=== PATIENT | female | born 1975 | race Caucasian/White ===

== ENCOUNTER 2022-08-07 04:18 | Observation (INO) ==
[2022-08-07] MEDS ORDERED: IOPAMIDOL 100 ML BOTTLE IV ONE (04:19)
[2022-08-07] MEDS ORDERED: 0.9 % SODIUM CHLORIDE 1,000 ML IV ONE (04:23)
[2022-08-07] MEDS ORDERED: fentaNYL 100 MCG/2 ML VIAL IV ONE ×2 (04:30→06:26)
[2022-08-07] MEDS ORDERED: ONDANSETRON 4 MG/2 ML VIAL IV ONE (04:30)
[2022-08-07 04:34] LABS: POC Calcium, Ionized 1.23 (1.16-1.32); POC Potassium 3.6 (3.3-5.1)
--- NOTE | 2022-08-07 04:34 | Emergency Department Note ---
Abdominal Pain HPI General Chief Complaint: Abdominal Pain Stated Complaint: right side pain Time Seen by Provider: 08/07/22 04:21 Source: patient Mode of arrival: ambulatory Limitations: no limitations History of Present Illness HPI Narrative: Narrative: Patient presents ED with complaints of worsening abdominal pain x4 days. Pain is rated 7/10 and located in the right upper quadrant. Patient states she was seen at [facility] 2 days ago and had a ultrasound which showed gallstones. She states she was felt to be referred to general surgery but does not have an appointment yet. She reports associated nausea. She denies fever, chills, vomiting, dysuria, hematuria, urinary frequency, cardiac chest pain, heart palpitation, shortness of breath. She states the pain is not controlled at home. She states she would like her gallbladder out. She does report a history of PE with the last 1 being 4 years ago and is on chronic anticoagulation with Xarelto. Patient states that she last ate at approximate 9:00 last night. Patient denies any other alleviating or aggravating factors. She reports that she has a tubal ligation. Related Data Home Medications Medication Instructions Recorded Confirmed trazodone 100 mg tablet 100 mg PO HS 02/08/18 08/05/22 rivaroxaban 10 mg tablet (Xarelto) 10 mg PO QDAY 03/01/22 08/05/22 ibuprofen 800 mg tablet 800 mg PO TID 04/16/22 08/05/22 methocarbamol 750 mg tablet 750 mg PO PRN 04/16/22 08/05/22 topiramate 100 mg tablet 100 mg PO HS 04/16/22 08/05/22 venlafaxine 75 mg tablet 75 mg PO ONCE 08/05/22 08/05/22 Previous Rx's Medication Instructions Recorded triamcinolone acetonide 0.1 % 1 applic topical BID rash #15 grams 08/05/22 topical ointment Allergies Allergy/AdvReac Type Severity Reaction Status Date / Time codeine AdvReac Other Verified 08/05/22 15:16 Sulfa (Sulfonamide AdvReac Vomiting Verified 08/05/22 15:16 Antibiotics) Review of Systems ROS ROS Narrative: Narrative: All systems ED: reviewed and negative except as stated. [facility] Narrative Patient History Narrative: Narrative: Medical/Surgical/Family History All Active Problems (Updated 08/07/22 @ 06:46 by Derek Marrero DO) Cholelithiasis (Acute) Abdominal pain (Acute) Degeneration of intervertebral disc of lumbar region (Acute) Radiculopathy, lumbosacral region (Acute) Current use of anticoagulant therapy (Chronic) Chronic pain (Chronic) Depression (Chronic) Easy bruising (Chronic) Vasculitis (Chronic) Recurrent UTI (Chronic) Daily headache (Chronic) Pulmonary embolus (Chronic) Edema, lower extremity (Chronic) Other low back pain (Chronic) Migraine (Chronic) Anxiety disorder (Chronic) Bipolar disorder (Chronic) Recurrent major depression (Chronic) Obesity (Chronic) Lumbar radiculopathy (Chronic) Exposure to COVID-19 virus (Acute) Viral syndrome (Acute) Dental abscess (Acute) Dental caries (Acute) Musculoskeletal arm pain (Acute) Neck pain (Acute) Chest pain (Acute) Shortness of breath (Acute) Elevated d-dimer (Acute) History of pulmonary embolus (PE) (Acute) Family history of deep venous thrombosis (Acute) Medical History Anxiety disorder Bipolar disorder Chronic pain Current use of anticoagulant therapy Daily headache Dental abscess Dental caries Depression Easy bruising Edema, lower extremity Exposure to COVID-19 virus Lumbar radiculopathy Migraine Obesity Other low back pain Pulmonary embolus Recurrent major depression Recurrent UTI Vasculitis Viral syndrome Surgical History History of cervical discectomy (~2016) x2, metal placed History of tonsillectomy and adenoidectomy (01/06/83) History of tubal ligation (05/20/99) Family History Grandfather , at age 66 Heart disease Myocardial infarction Maternal Grandmother , at age 60 Cancer Disease of liver Maternal Dementia Paternal- at age 98 Uncle Cancer Schizophrenia, unspecified Paternal Son Mood disorder Mother Mood disorder Hypertension Aunt Blood coagulation disorder Paternal Other Diabetes mellitus Social History Smoking Status: Never smoker Alcohol Intake Frequency: holiday/special occasion only Substance Use: does not use Exam Narrative Narrative: Narrative: General Limitations: no limitations General appearance: Present alert Head Head: Present atraumatic Eye Eye: Present normal appearance ENT ENT: Present normal oropharynx and mucous membranes moist Chest Chest: Present normal inspection; Absent tenderness Respiratory Respiratory: Present normal lung sounds bilaterally; Absent respiratory distress Cardiovascular Cardiovascular: Present regular rate and normal rhythm Adbominal Abdominal: Present soft, tenderness and normal bowel sounds Expanded Abdominal Abdominal Tenderness: Present RUQ and LUQ Extremities Extremities: Present full ROM and normal capillary refill Neurological Neurological: Present oriented X3 and normal gait Psychiatric Psychiatric: Present normal affect and normal mood Skin Skin: Present warm (WNL) and intact Course Course Course Narrative: Patient was evaluated for right upper quadrant abdominal pain with known cholelithiasis on ultrasound 2 days ago. Labs were obtained and were unremarkable. UA was unremarkable. ECG was unremarkable. Patient also had some left upper quadrant tenderness to palpation, this could have been radiation from the right upper quadrant but a CT of the abdomen pelvis obtained was unremarkable. Patient was given IV fentanyl and fluids. Her pain did improve. She is also given some Zofran for nausea. Case was discussed with on-call surgeon, Dr. Wellington, who states he will come down evaluate the patient. Case will be signed out to Dr. Lewis to determine disposition as I am going off service pending recommendations from Dr. Wellington. Reevaluation(s) Reevaluation #1: Patient remains hemodynamic stable. No new complaints at this time. Time: 05:30 Consultations Consultation #1: Case discussed with on-call general surgeon, Dr. Wellington, who will come and evaluate the patient Time: 06:05 Vital Signs Vital signs: Vital Signs Temperature 97 F 08/07/22 04:21 Pulse Rate 57 L 08/07/22 04:21 Respiratory Rate 16 08/07/22 04:21 Blood Pressure 144/88 08/07/22 04:21 Pulse Oximetry (%) 99 08/07/22 04:21 Oxygen Delivery Method 08/07/22 04:21 Temperature 97 F 08/07/22 04:21 Pulse Rate 67 08/07/22 06:32 Respiratory Rate 16 08/07/22 04:21 Blood Pressure 118/77 08/07/22 06:32 Pulse Oximetry (%) 100 08/07/22 06:32 Oxygen Delivery Method 08/07/22 04:21 [facility] MDM Narrative Medical decision making narrative: Narrative: Differential Diagnosis Differential Diagnosis: Gallstones Medical Records Medical records reviewed: Yes I reviewed the patient's medical records. Lab Data Lab results reviewed: Yes I reviewed the patient's lab results. Result diagrams: 08/07/22 04:43 Labs: Lab Results 08/07/22 08/07/22 08/07/22 Range/Units 04:30 04:42 04:43 WBC 7.8 (4.5-11.0) K/mcL RBC 5.07 (3.59-5.38) M/mcL Hgb 14.4 (11.2-15.7) g/dL Hct 45.5 H (34.1-44.9) % POC Hct 45.0 (36-48) MCV 89.7 (80.0-100.0) fL MCH 28.4 (26.0-34.0) pg MCHC 31.6 (31.0-36.0) g/dL RDW 13.0 (11.5-14.5) % Plt Count 413 (140-440) K/mcL MPV 10.2 (8.8-12.5) fL Immature Gran % (Auto) 0.3 (0.0-0.5) % Neut % (Auto) 38.6 (38.0-78.0) % Lymph % (Auto) 46.4 (15.5-49.0) % Wilkes % (Auto) 10.0 (1.0-12.0) % Eos % (Auto) 3.2 (0.0-7.0) % Baso % (Auto) 1.5 (0.0-2.0) % Lymph # (Auto) 3.63 (1.50-4.80) K/mcL Wilkes # (Auto) 0.78 (0.10-0.90) K/mcL Eos # (Auto) 0.25 (0.00-0.70) K/mcL Baso # (Auto) 0.12 (0.00-0.30) K/mcL Immature Gran # 0.02 (0.00-0.05) K/mcl Absolute Neutrophils 3.02 (1.80-8.00) K/mcL POC PT 15.4 H (11.9-14.5) POC INR 1.3 H (0.8-1.2) POC Sodium 143 (133-145) POC Potassium 3.6 (3.3-5.1) POC Chloride 109 H (96-108) POC Total CO2 23.0 (22-30) POC BUN 15 (6-20) POC Creatinine 1.0 (0.6-1.2) POC Glucose 109 H (70-105) POC WB Ioniz Calcium 1.23 (1.16-1.32) Total Bilirubin (0.1-1.0) mg/dL Direct Bilirubin (0-0.3) mg/dL AST (<32) U/L ALT (<40) U/L Alkaline Phosphatase (39-117) U/L Total Protein (5.9-8.4) gm/dL Albumin (3.2-5.2) gm/dL Globulin (2.2-3.7) gm/dL HCG, Qual 08/07/22 Range/Units 04:43 WBC (4.5-11.0) K/mcL RBC (3.59-5.38) M/mcL Hgb (11.2-15.7) g/dL Hct (34.1-44.9) % POC Hct (36-48) MCV (80.0-100.0) fL MCH (26.0-34.0) pg MCHC (31.0-36.0) g/dL RDW (11.5-14.5) % Plt Count (140-440) K/mcL MPV (8.8-12.5) fL Immature Gran % (Auto) (0.0-0.5) % Neut % (Auto) (38.0-78.0) % Lymph % (Auto) (15.5-49.0) % Wilkes % (Auto) (1.0-12.0) % Eos % (Auto) (0.0-7.0) % Baso % (Auto) (0.0-2.0) % Lymph # (Auto) (1.50-4.80) K/mcL Wilkes # (Auto) (0.10-0.90) K/mcL Eos # (Auto) (0.00-0.70) K/mcL Baso # (Auto) (0.00-0.30) K/mcL Immature Gran # (0.00-0.05) K/mcl Absolute Neutrophils (1.80-8.00) K/mcL POC PT (11.9-14.5) POC INR (0.8-1.2) POC Sodium (133-145) POC Potassium (3.3-5.1) POC Chloride (96-108) POC Total CO2 (22-30) POC BUN (6-20) POC Creatinine (0.6-1.2) POC Glucose (70-105) POC WB Ioniz Calcium (1.16-1.32) Total Bilirubin 0.2 (0.1-1.0) mg/dL Direct Bilirubin < 0.2 (0-0.3) mg/dL AST 16 (<32) U/L ALT 16 (<40) U/L Alkaline Phosphatase 86 (39-117) U/L Total Protein 7.3 (5.9-8.4) gm/dL Albumin 4.2 (3.2-5.2) gm/dL Globulin 3.1 (2.2-3.7) gm/dL HCG, Qual Negative Core Measures AMI Core Measures Followed: Yes Discharge Plan Patient/Caregiver Discharge Instructions Pt seen by APARTMENT LEASING AGENT/PA only: No Clinical Impression: Cholelithiasis Qualifiers: Cholelithiasis location: gallbladder Cholecystitis presence: without cholecystitis Biliary obstruction: without biliary obstruction Qualified Code(s): K80.20 - Calculus of gallbladder without cholecystitis without obstruction Abdominal pain Qualifiers: Abdominal location: right upper quadrant Qualified Code(s): R10.11 - Right upper quadrant pain Patient Disposition: Still a Patient Condition: Good Follow up with: Charlee Bundy PAFidencioC [Primary Care Provider] - Prescriptions: No Action topiramate 100 mg tablet 100 mg PO HS methocarbamol 750 mg tablet 750 mg PO PRN ibuprofen 800 mg tablet 800 mg PO TID Xarelto 10 mg tablet 10 mg PO QDAY triamcinolone acetonide 0.1 % ointment 1 applic topical BID Qty: 15 0RF Rx Instructions: Apply thin layer to affected area BID PRN for up to 2 weeks. Avoid contact with eyes. venlafaxine 75 mg tablet 75 mg PO ONCE trazodone 100 MG tablet 100 mg PO HS
[2022-08-07 04:47] LABS: POC INR 1.3 (0.8-1.2); POC Pro Time 15.4 (11.9-14.5)
[2022-08-07 05:36] LABS: Basophils # (Auto) 0.12 K/mcL (0.00-0.30); Basophils % (Auto) 1.5 % (0.0-2.0); Eosinophils # (Auto) 0.25 K/mcL (0.00-0.70); Eosinophils % (Auto) 3.2 % (0.0-7.0); HCG,Serum Negative; Hematocrit 45.5 % (34.1-44.9); Hemoglobin 14.4 g/dL (11.2-15.7); Lymphocytes # (Auto) 3.63 K/mcL (1.50-4.80); Lymphocytes % (Auto) 46.4 % (15.5-49.0); Mean Cell Volume 89.7 fL (80.0-100.0); Mean Corpuscular HGB Conc 31.6 g/dL (31.0-36.0); Mean Platelet Volume 10.2 fL (8.8-12.5); Monocytes # (Auto) 0.78 K/mcL (0.10-0.90); Neutrophils % (Auto) 38.6 % (38.0-78.0); Platelet Count 413 K/mcL (140-440); RBC 5.07 M/mcL (3.59-5.38); WBC 7.8 K/mcL (4.5-11.0)
[2022-08-07 05:43] LABS: ALT/SGPT 16 U/L (<40); AST/SGOT 16 U/L (<32); Albumin 4.2 gm/dL (3.2-5.2); Alkaline Phosphatase 86 U/L (39-117); Bilirubin,Direct < 0.2 mg/dL (0-0.3); Bilirubin,Total 0.2 mg/dL (0.1-1.0); Globulin 3.1 gm/dL (2.2-3.7)
--- NOTE | 2022-08-07 06:20 | Cat Scan Report ---
INDICATION: abd pain COMPARISON: Previous noncontrast enhanced CT scan dated 05/23/2006. Previous ultrasound dated 08/06/2022 TECHNIQUE: Axial images were obtained through the abdomen and pelvis. Sagittally and coronally reformatted images. 80 mL Isovue 370 injected intravenously. Oral contrast material was not administered FINDINGS: Examination was initially interpreted by [facility] Lung bases:Negative. No pulmonary parenchymal nodule. No pleural fluid or pericardial fluid Liver:Negative. No focal intrahepatic mass. No focal abnormality. Liver contour is smooth. No evidence for cirrhosis Gallbladder, bilary:Ultrasound demonstrated cholelithiasis and biliary sludge. These abnormalities are not well visualized on present examination. There is no gallbladder wall thickening or pericholecystic fluid. No dilated bile ducts Spleen:No splenomegaly. Normal enhancement of splenic and portal veins. Pancreas:No pancreatic mass. No peripancreatic abnormality Adrenal glands:Negative Kidneys,ureters,bladder:Negative right kidney. No solid or cystic mass. No hydronephrosis. There is irregular parenchymal scarring in the left kidney. This may be secondary to previous infections or surgery. No solid mass. No hydronephrosis. No acute abnormality. Appearance is essentially unchanged since previous noncontrast enhanced CT scan dated 05/23/2006 No hydroureter. No ureteral calculus. No bladder stone. No detectable bladder mass. Gastrointestinal:No detectable colonic mass. There is no diverticulitis. Negative small bowel. No mechanical small bowel obstruction. No bowel wall thickening. No focal abnormality. Negative stomach and duodenum. No focal abnormality. Appendix: The appendix is negative Vascular:Negative abdominal aorta. Superior mesenteric artery and celiac trunk are normal. Normal opacification of the inferior mesenteric artery Lymphatic:No retroperitoneal or mesenteric adenopathy Mesentery, peritoneum: No free intraperitoneal fluid. No mesenteric or retroperitoneal mass. No intra-abdominal abscess. Reproductive:Uterus is anteflexed. No adnexal mass Musculoskeletal:No lumbar compression fractures. Sacrum and pelvis are negative. No hip fracture. No abdominal wall or inguinal hernia IMPRESSION: 1. Irregular left kidney consistent with chronic scarring. Appearance is essentially unchanged since 2005 2. Cholelithiasis is not visualized on CT scan but was demonstrated on previous ultrasound. There is no gallbladder wall thickening or pericholecystic inflammatory change or fluid 3. Negative appendix The exam was performed using radiation dose optimization techniques including, but not limited to, automated exposure control, adjustment of the mA and/or kV according to patient size and use of iterative reconstruction technique. Interpreted and Authenticated by: Chico Augustine 08/07/22
[2022-08-07] MEDS ORDERED: ONDANSETRON 4 MG/2 ML VIAL IV PRN (08:13)
[2022-08-07] MEDS ORDERED: ACETAMINOPHEN 325 MG TABLET PO PRN (08:13)
--- NOTE | 2022-08-07 08:24 | General Surg History&Physical ---
HPI History of Present Illness Patient information: Note initiated : 08/07/22 at 8:19 am Service Date, if different from initiated Date: [] Patient: Shahid Benitez a 46 y/o F admitted on for right side pain. Chief Complaint: [] Chief complaint: Epigastric pain History of present illness: Ms. Benitez is a 46 year old F who presents with 2-day history of epigastric and right upper quadrant abdominal pain. She reports that the pain is progressive, she was seen on Friday in a walk in clinic, labs were within normal limits, ultrasound showed cholelithiasis without evidence of cholecystitis. Her pain continued to increase therefore she presented to our emergency room this morning. White blood cell count is normal, however she has intractable pain and cannot get pain-free. I was asked to see the patient for cholecystectomy. Review of Systems Review of systems: All systems are reviewed, negative other than above PFSH PFSH All Active Problems Cholecystitis, acute (Acute) Cholelithiasis (Acute) Abdominal pain (Acute) Degeneration of intervertebral disc of lumbar region (Acute) Radiculopathy, lumbosacral region (Acute) Current use of anticoagulant therapy (Chronic) Chronic pain (Chronic) Depression (Chronic) Easy bruising (Chronic) Vasculitis (Chronic) Recurrent UTI (Chronic) Daily headache (Chronic) Pulmonary embolus (Chronic) Edema, lower extremity (Chronic) Other low back pain (Chronic) Migraine (Chronic) Anxiety disorder (Chronic) Bipolar disorder (Chronic) Recurrent major depression (Chronic) Obesity (Chronic) Lumbar radiculopathy (Chronic) Exposure to COVID-19 virus (Acute) Viral syndrome (Acute) Dental abscess (Acute) Dental caries (Acute) Musculoskeletal arm pain (Acute) Neck pain (Acute) Chest pain (Acute) Shortness of breath (Acute) Elevated d-dimer (Acute) History of pulmonary embolus (PE) (Acute) Family history of deep venous thrombosis (Acute) Medical History Anxiety disorder Bipolar disorder Chronic pain Current use of anticoagulant therapy Daily headache Dental abscess Dental caries Depression Easy bruising Edema, lower extremity Exposure to COVID-19 virus Lumbar radiculopathy Migraine Obesity Other low back pain Pulmonary embolus Recurrent major depression Recurrent UTI Vasculitis Viral syndrome Surgical History History of cervical discectomy (~2015) x2, metal placed History of tonsillectomy and adenoidectomy (01/06/83) History of tubal ligation (05/20/99) Family History Grandfather , at age 66 Heart disease Myocardial infarction Maternal Grandmother , at age 60 Cancer Disease of liver Maternal Dementia Paternal- at age 98 Uncle Cancer Schizophrenia, unspecified Paternal Son Mood disorder Mother Mood disorder Hypertension Aunt Blood coagulation disorder Paternal Other Diabetes mellitus Social History marital status: education level: college occupational status: employed occupation: [employer] smoking status: Never smoker alcohol intake frequency: holiday/special occasion only substance use type: does not use seatbelt use: always MEDS/ALLERGIES Home Medications and Allergies Home Medications Medication Instructions Recorded Confirmed Type trazodone 100 mg tablet 100 mg PO HS 02/08/18 08/05/22 History rivaroxaban 10 mg tablet (Xarelto) 10 mg PO QDAY 03/01/22 08/05/22 History ibuprofen 800 mg tablet 800 mg PO TID 04/16/22 08/05/22 History methocarbamol 750 mg tablet 750 mg PO PRN 04/16/22 08/05/22 History topiramate 100 mg tablet 100 mg PO HS 04/16/22 08/05/22 History triamcinolone acetonide 0.1 % 1 applic topical BID rash #15 grams 08/05/22 08/05/22 Rx topical ointment venlafaxine 75 mg tablet 75 mg PO ONCE 08/05/22 08/05/22 History Allergies Allergy/AdvReac Type Severity Reaction Status Date / Time codeine AdvReac Other Verified 08/05/22 15:16 Sulfa (Sulfonamide AdvReac Vomiting Verified 08/05/22 15:16 Antibiotics) Physical Examination Vital Signs Vital signs: Temp Pulse Resp BP Pulse Ox O2 Del Method 97 F 63 16 124/83 99 08/07/22 04:21 08/07/22 07:46 08/07/22 04:21 08/07/22 07:46 08/07/22 07:46 08/07/22 04:21 General physical appearance General physical exam: well developed, well nourished and no distress Eyes Eye exam: PERRL and normal ocular movement ENT ENT exam: normal pinna, normal nares, normal mucosa, no hearing loss and no congestion Head Head exam IM: Present atraumatic and normocephalic Neck Neck exam: no masses, no bruits, trachea midline, no lymphadenopathy and no suzi ous distension Cardiovascular Cardiovascular exam IM: Present normal rate and rhythm Respiratory Respiratory exam: normal expansion, normal respiratory effort, clear to percussion and clear to auscultation Abdomen Abdomen: Present soft, tender (RUQ, positive Cornejo sign) and bowel sounds; Absent guarding, rigid, rebound or distended Hernia: Present none Genitourinary Genitourinary (Female): Present normal external genitalia Rectum Rectum: Present normal sphincter tone, no hemorrhoids, no tenderness, no masses and no bleeding Integumentary Integumentary: Present no rash, no growths and no abnormal pigmentation Neurologic Neurologic: Present normal coordination and normal sensation Musculoskeletal Musculoskeletal: Present normal gait and normal posture Psychiatric Psychiatric: Present oriented to time, oriented to person, oriented to place, speech is normal and memory intact Results Labs Result diagrams: 08/07/22 04:43 Labs: Abnormal lab results 08/07/22 08/07/22 08/07/22 Range/Units 04:30 04:42 04:43 Hct 45.5 H (34.1-44.9) % POC PT 15.4 H (11.9-14.5) POC INR 1.3 H (0.8-1.2) POC Chloride 109 H (96-108) POC Glucose 109 H (70-105) Diabetes panel 08/07/22 Range/Units 04:43 AST 16 (<32) U/L ALT 16 (<40) U/L Alkaline Phosphatase 86 (39-117) U/L Total Protein 7.3 (5.9-8.4) gm/dL Albumin 4.2 (3.2-5.2) gm/dL Calcium panel 08/07/22 Range/Units 04:43 Albumin 4.2 (3.2-5.2) gm/dL Adrenal panel 08/07/22 Range/Units 04:43 Total Bilirubin 0.2 (0.1-1.0) mg/dL AST 16 (<32) U/L ALT 16 (<40) U/L Alkaline Phosphatase 86 (39-117) U/L Total Protein 7.3 (5.9-8.4) gm/dL Albumin 4.2 (3.2-5.2) gm/dL All other labs normal. A/P Assessment and plan (1) Cholelithiasis: Status: Acute Qualifiers: Biliary obstruction: without biliary obstruction Cholecystitis presence: without cholecystitis Cholelithiasis location: gallbladder Qualified Code(s): K80.20 - Calculus of gallbladder without cholecystitis without obstruction (2) Cholecystitis, acute: Plan: This is a pleasant 46-year-old female who presents with acute cholecystitis. Risk, benefits, alternatives to surgical intervention discussed with her at length including details of procedure and what to expect pre and post. She verbalized understanding, all of her questions are answered and she desires to continue. Plan: Admission, clear liquid diets, n.p.o. after midnight. To the OR for robotic assisted cholecystectomy tomorrow. Will hold Xarelto until postop. Status: Acute Time Spent With Patient Time: Total time spent is greater than 50% in coordination of care (as documented) at patient's floor/unit and/or counseling patient:
[2022-08-07] MEDS: PIPERACILLIN SODIUM/TAZOBACTAM 3.375 GM in DEXTROSE 5% IN WATER 50 ML IV SCH ×3 (09:09→20:32)
[2022-08-07] MEDS: LACTATED RINGERS 1,000 ML IV SCH (10:27)
[2022-08-07] MEDS: HYDROmorphone 0.5 MG/0.5 ML SYRINGE IV PRN ×3 (10:27→18:28)
[2022-08-07] MEDS: 0.9 % SODIUM CHLORIDE 10 ML SYRINGE IV SCH ×3 (10:28→20:07)
[2022-08-07] MEDS: oxyCODONE HCL 5 MG TABLET PO PRN ×2 (10:28→17:29)
[2022-08-07] MEDS ORDERED: PROMETHAZINE 25 MG/ML VIAL IV PRN (17:25)
--- NOTE | 2022-08-07 19:18 | Emergency Department Note ---
Course Course Course Narrative: Took over care from Dr. Marrero. Patient has acalculous cholecystitis and awaiting surgeon Dr. Wellington to see her. Dr. Wellington and admitted patient for surgery Vital Signs Vital signs: Vital Signs Temperature 97 F 08/07/22 04:21 Pulse Rate 57 L 08/07/22 04:21 Respiratory Rate 16 08/07/22 04:21 Blood Pressure 144/88 08/07/22 04:21 Pulse Oximetry (%) 99 08/07/22 04:21 Oxygen Delivery Method 08/07/22 04:21 Temperature 98.2 F 08/07/22 16:00 Pulse Rate 65 08/07/22 16:00 Respiratory Rate 20 08/07/22 16:00 Blood Pressure 108/67 08/07/22 16:00 Pulse Oximetry (%) 93 08/07/22 16:00 Oxygen Delivery Method 08/07/22 16:00 MDM MDM Narrative Medical decision making narrative: Narrative: Lab Data Result diagrams: 08/07/22 04:43 Labs: Lab Results 08/07/22 08/07/22 08/07/22 Range/Units 04:30 04:42 04:43 WBC 7.8 (4.5-11.0) K/mcL RBC 5.07 (3.59-5.38) M/mcL Hgb 14.4 (11.2-15.7) g/dL Hct 45.5 H (34.1-44.9) % POC Hct 45.0 (36-48) MCV 89.7 (80.0-100.0) fL MCH 28.4 (26.0-34.0) pg MCHC 31.6 (31.0-36.0) g/dL RDW 13.0 (11.5-14.5) % Plt Count 413 (140-440) K/mcL MPV 10.2 (8.8-12.5) fL Immature Gran % (Auto) 0.3 (0.0-0.5) % Neut % (Auto) 38.6 (38.0-78.0) % Lymph % (Auto) 46.4 (15.5-49.0) % Dougherty % (Auto) 10.0 (1.0-12.0) % Eos % (Auto) 3.2 (0.0-7.0) % Baso % (Auto) 1.5 (0.0-2.0) % Lymph # (Auto) 3.63 (1.50-4.80) K/mcL Dougherty # (Auto) 0.78 (0.10-0.90) K/mcL Eos # (Auto) 0.25 (0.00-0.70) K/mcL Baso # (Auto) 0.12 (0.00-0.30) K/mcL Immature Gran # 0.02 (0.00-0.05) K/mcl Absolute Neutrophils 3.02 (1.80-8.00) K/mcL POC PT 15.4 H (11.9-14.5) POC INR 1.3 H (0.8-1.2) POC Sodium 143 (133-145) POC Potassium 3.6 (3.3-5.1) POC Chloride 109 H (96-108) POC Total CO2 23.0 (22-30) POC BUN 15 (6-20) POC Creatinine 1.0 (0.6-1.2) POC Glucose 109 H (70-105) POC WB Ioniz Calcium 1.23 (1.16-1.32) Total Bilirubin (0.1-1.0) mg/dL Direct Bilirubin (0-0.3) mg/dL AST (<32) U/L ALT (<40) U/L Alkaline Phosphatase (39-117) U/L Total Protein (5.9-8.4) gm/dL Albumin (3.2-5.2) gm/dL Globulin (2.2-3.7) gm/dL HCG, Qual 08/07/22 Range/Units 04:43 WBC (4.5-11.0) K/mcL RBC (3.59-5.38) M/mcL Hgb (11.2-15.7) g/dL Hct (34.1-44.9) % POC Hct (36-48) MCV (80.0-100.0) fL MCH (26.0-34.0) pg MCHC (31.0-36.0) g/dL RDW (11.5-14.5) % Plt Count (140-440) K/mcL MPV (8.8-12.5) fL Immature Gran % (Auto) (0.0-0.5) % Neut % (Auto) (38.0-78.0) % Lymph % (Auto) (15.5-49.0) % Dougherty % (Auto) (1.0-12.0) % Eos % (Auto) (0.0-7.0) % Baso % (Auto) (0.0-2.0) % Lymph # (Auto) (1.50-4.80) K/mcL Dougherty # (Auto) (0.10-0.90) K/mcL Eos # (Auto) (0.00-0.70) K/mcL Baso # (Auto) (0.00-0.30) K/mcL Immature Gran # (0.00-0.05) K/mcl Absolute Neutrophils (1.80-8.00) K/mcL POC PT (11.9-14.5) POC INR (0.8-1.2) POC Sodium (133-145) POC Potassium (3.3-5.1) POC Chloride (96-108) POC Total CO2 (22-30) POC BUN (6-20) POC Creatinine (0.6-1.2) POC Glucose (70-105) POC WB Ioniz Calcium (1.16-1.32) Total Bilirubin 0.2 (0.1-1.0) mg/dL Direct Bilirubin < 0.2 (0-0.3) mg/dL AST 16 (<32) U/L ALT 16 (<40) U/L Alkaline Phosphatase 86 (39-117) U/L Total Protein 7.3 (5.9-8.4) gm/dL Albumin 4.2 (3.2-5.2) gm/dL Globulin 3.1 (2.2-3.7) gm/dL HCG, Qual Negative Discharge Plan Patient/Caregiver Discharge Instructions Pt seen by LOOKBACK COORDINATOR/PA only: No Clinical Impression: Cholelithiasis, Abdominal pain Patient Disposition: Xfer As Inpt ([facility]) Condition: Good Discharge Date/Time: 08/07/22 09:05
[2022-08-08] MEDS: PIPERACILLIN SODIUM/TAZOBACTAM 3.375 GM in DEXTROSE 5% IN WATER 50 ML IV SCH ×4 (00:40→18:01)
[2022-08-08] MEDS: oxyCODONE HCL 5 MG TABLET PO PRN ×3 (04:04→14:24)
[2022-08-08] MEDS: LACTATED RINGERS 1,000 ML IV SCH ×2 (04:23→12:19)
[2022-08-08] MEDS: 0.9 % SODIUM CHLORIDE 10 ML SYRINGE IV SCH ×2 (05:32→12:22)
[2022-08-08] MEDS: HYDROmorphone 0.5 MG/0.5 ML SYRINGE IV PRN ×4 (05:40→17:06)
[2022-08-08] MEDS ORDERED: fentaNYL 100 MCG/2 ML VIAL IV ONE (07:30)
[2022-08-08] MEDS ORDERED: MAGNESIUM SULFATE 2 GM/50 ML BAG IV ONE (07:30)
[2022-08-08] MEDS ORDERED: ONDANSETRON 4 MG/2 ML VIAL ONE (07:30)
[2022-08-08] MEDS ORDERED: SUGAMMADEX SODIUM 200 MG/2 ML VIAL IV ONE (07:30)
[2022-08-08] MEDS ORDERED: DEXAMETHASONE 10 MG/ML VIAL ONE (07:30)
[2022-08-08] MEDS ORDERED: LIDOCAINE HCL/PF 100 MG/5 ML SYRINGE IV ONE (07:30)
[2022-08-08] MEDS ORDERED: ROCURONIUM 10 MG/ML ML IV ONE (07:30)
[2022-08-08] MEDS ORDERED: PROPOFOL 200 MG/20 ML VIAL IV ONE (07:30)
[2022-08-08] MEDS ORDERED: KETAMINE 50 MG/ML Syringe (ANEST) IV ONE (07:30)
[2022-08-08] MEDS ORDERED: BUPIVACAINE PF 0.5% 10 ML VIAL IJ ONE (08:10)
[2022-08-08] MEDS ORDERED: ACETAMINOPHEN 1,000 MG/100 ML BAG IV ONE (08:18)
[2022-08-08] MEDS ORDERED: NALOXONE HCL 0.4 MG/ML VIAL IV PRN (08:18)
[2022-08-08] MEDS ORDERED: diphenhydrAMINE 50 MG/ML VIAL IV PRN (08:18)
[2022-08-08] MEDS ORDERED: LACTATED RINGERS 250 ML IV PRN (08:18)
[2022-08-08] MEDS ORDERED: IPRATROPIUM/ALBUTEROL 3 ML AMPUL.NEB NEB PRN (08:18)
[2022-08-08] MEDS ORDERED: PROMETHAZINE 25 MG/ML VIAL IV PRN (08:18)
[2022-08-08] MEDS ORDERED: MEPERIDINE 25 MG/ML VIAL IV PRN (08:18)
[2022-08-08] MEDS ORDERED: ONDANSETRON 4 MG/2 ML VIAL IV PRN (08:18)
[2022-08-08] MEDS ORDERED: HYDROmorphone 0.5 MG/0.5 ML SYRINGE IV PRN (08:18)
[2022-08-08] MEDS ORDERED: LACTATED RINGERS 1,000 ML IV SCH (08:30)
--- NOTE | 2022-08-08 08:37 | Operative Note ---
Brief Operative Note Date of procedure: 08/08/22 Pre-op diagnosis: Acute cholecystitis Post-op diagnosis: same Procedure: Robotic assisted cholecystectomy Grafts/Implants: No Anesthesia: GETA Findings: Cholelithiasis, acute cholecystitis Complications: none Surgeon: Peña Wellington Estimated blood loss (cc): 10 Specimens Removed/Pathology: other (Gallbladder and contents) Condition: stable Disposition: PACU Operative Note Operative Note: After risk benefits and alternatives to the procedure were discussed with the patient at length she verbalized understanding and desire to continue with the procedure. Patient was taken main operating room placed upon the operative table. General anesthesia was induced over endotracheal tube. Patient was prepped and draped in the standard sterile surgical fashion. Surgical timeout was taken to verify patient and procedure being performed. 1% lidocaine half percent Marcaine was used for local anesthesia throughout the case. The abdomen was entered under direct vision using a 12 mm Optiview trocar through a right upper quadrant incision. The abdominal cavity was insufflated with carbon oxide and visual inspection revealed no injuries. A 8 mm supraumbilical, a 8 mm left upper quadrant trocar and an additional 8 mm right upper quadrant trocar was placed under direct vision. Patient was placed in a head up right side up position. The da Aguila robot was docked in the standard fashion attention was turned to the gallbladder where the omental attachments were taken down with bipolar electrocautery. The gallbladder was distended and difficult to be grasped therefore it was decompressed with the suction cutting tool sharpener. Once this was done the peritoneal attachments to the gallbladder were carefully taken down with electrocautery and then the triangle JACEY was carefully dissected free with blunt dissection. Once a critical view of safety was clearly identified the cystic duct and cystic artery were surgically clipped and transected. The gallbladder was removed from the gallbladder fossa using electrocautery this placed in Endo Catch bag removed through the 12mm incision and passed off the field for surgical pathology. Attention was turned back to the gallbladder fossa which was inspected for hemostasis and all bile spillage was suctioned free from the abdominal cavity. The 12mm fascial defect was then reapproximated with a interrupted 0 Vicryl suture. CO2 and trochars were removed from the abdominal cavity under direct vision. Trocar sites were inspected for hemostasis. Skin edges were closed with interrupted 4 Monocryl sutures skin glue dressings were applied. Patient was then awakened from anesthesia transported postanesthesia care unit awake alert in good condition.
--- NOTE | 2022-08-08 08:38 | Discharge Summary ---
Discharge Provider Provider IMPORTANT FOLLOW-UP INFORMATION FOR PCP: Patient information: Note initiated : 08/08/22 at 8:37 am Service Date, if different from initiated Date: [] Patient: Shahid Benitez 46 y/o F admitted on 08/07/22 for right side pain- Choletlithiasis. Chief Complaint: [] Date of admission: 08/07/22 09:20 Discharge date: 08/08/22 Primary care physician: Charlee Bundy PA-C Consults: 08/07/22 Consult to Physician [CONS] Stat Comment: cholelithiasis Consulting Provider: Peña Wellington Reason For Exam: Physician to Consult COURSE Hospital Course Hospital course: Patient is admitted with acute cholecystitis, patient was placed n.p.o. and taken to the operating room for robotic assisted cholecystectomy. Patient tolerated procedure well. Discharge diagnosis: Acute cholecystitis, status postcholecystectomy Time Spent with Patient Time attestation: Total time spent providing and/or coordinating discharge services: Time spent: Less than 30 minutes Physical Examination Vital Signs Vital signs: Temp Pulse Resp BP Pulse Ox O2 Del Method 96.8 F L 63 18 102/63 95 08/08/22 02:57 08/08/22 02:57 08/08/22 02:57 08/08/22 02:57 08/08/22 02:57 08/08/22 02:57 Discharge Plan Patient/Caregiver Discharge Instructions Activity: increase activity as tolerated Diet: Regular Diet Activity Restrictions/Additional Instructions: Resume normal activity as tolerated, no weightlifting restrictions. May resume showering starting tonight. Follow-up with me in 2 to 3 weeks. Prescriptions: New acetaminophen [Tylenol 8 Hour] 650 mg tablet extended release 650 mg PO Q8H PRN (Reason: pain) Qty: 90 0RF oxycodone 5 mg tablet 5 mg PO Q6H PRN (Reason: pain) Qty: 5 0RF Continued topiramate 100 mg tablet 100 mg PO HS methocarbamol 750 mg tablet 750 mg PO PRN PRN (Reason: Muscle Pain) ibuprofen 800 mg tablet 800 mg PO TID Xarelto 10 mg tablet 10 mg PO QDAY venlafaxine 75 mg tablet 75 mg PO ONCE trazodone 100 MG tablet 100 mg PO HS Follow Up Plan Follow up with: Charlee Bundy PA-C [Primary Care Provider] - Peña Wellington MD [Physician] - Patient Disposition: Home, Self-Care Prognosis: Good Discharge Orders: Discharge Order (Routine); Ordered 08/08/22 Ordered By: Peña Wellington Pending Pending Pending: Resuscitation Status Resuscitate (Full Code) Diet NPO after Midnight Diet Start Adrienne Dec 2021 Hydromorphone HCl (Hydromorphone 0.5 Mg/0.5 Ml Syringe) 0.5 mg IV Q2HP PRN; Protocol PRN Reason: Per Pain Protocol Last Admin: 08/08/22 05:40 Dose: 0.5 mg Documented By: Admin: 08/07/22 18:28 Dose: 0.5 mg Documented By: Admin: 08/07/22 13:48 Dose: 0.5 mg Documented By: Admin: 08/07/22 10:27 Dose: 0.5 mg Documented By: ZULEIKA Lactated Ringer's (Lactated Ringers) 1,000 mls @ 75 mls/hr IV .[id number] [facility] Last Admin: 08/08/22 04:23 Dose: 75 mls/hr Documented By: Infusion: 08/08/22 04:23 Dose: 75 mls/hr Documented By: Infusion: 08/07/22 22:16 Dose: 75 mls/hr Documented By: Infusion: 08/07/22 20:35 Dose: 0 mls/hr Documented By: Admin: 08/07/22 10:27 Dose: 75 mls/hr Documented By: ZULEIKA Piperacillin Sod/Tazobactam (Sod 3.375 gm/ Dextrose) 50 mls @ 100 mls/hr IV Q6H [facility]; Protocol Last Infusion: 08/08/22 06:15 Dose: 0 mls/hr Documented By: Admin: 08/08/22 05:40 Dose: 100 mls/hr Documented By: Infusion: 08/08/22 01:15 Dose: 0 mls/hr Documented By: Admin: 08/08/22 00:40 Dose: 100 mls/hr Documented By: Infusion: 08/07/22 21:05 Dose: 0 mls/hr Documented By: Admin: 08/07/22 20:32 Dose: 100 mls/hr Documented By: Infusion: 08/07/22 16:03 Dose: 0 mls/hr Documented By: Admin: 08/07/22 15:05 Dose: 100 mls/hr Documented By: Infusion: 08/07/22 09:39 Dose: 0 mls/hr Documented By: Admin: 08/07/22 09:09 Dose: 100 mls/hr Documented By: SOTO Ondansetron HCl (Ondansetron 4 Mg/2 Ml Vial) 4 mg IV Q6HP PRN PRN Reason: Nausea And Vomiting Last Admin: 08/07/22 15:05 Dose: 4 mg Documented By: NIDA Oxycodone HCl (Oxycodone Hcl 5 Mg Tablet) 5 mg PO Q4HP PRN; Protocol PRN Reason: Per Pain Protocol Last Admin: 08/08/22 04:04 Dose: 5 mg Documented By: Admin: 08/07/22 10:28 Dose: 5 mg Documented By: ZULEIKA Promethazine HCl (Promethazine 25 Mg/Ml Vial) 12.5 mg IV Q6HP PRN PRN Reason: Nausea And Vomiting Last Admin: 08/07/22 20:06 Dose: 12.5 mg Documented By: ARIN Sodium Chloride (0.9 % Sodium Chloride 10 Ml Syringe) 10 ml IV Q8 AYLIN Last Admin: 08/08/22 05:32 Dose: Not Given Documented By: Admin: 08/07/22 20:07 Dose: Not Given Documented By: Admin: 08/07/22 15:05 Dose: 10 ml Documented By: Admin: 08/07/22 10:28 Dose: 10 ml Documented By: ZULEIKA Shift Summary 08/08/22 04:51 Shift Summary by Kristine Valente Primary Diagnosis: Cholelithiasis Registration Status: OBS Date of Surgery (if applicable): Scheduled today @ 0730- NPO since midnight Pertinent Medical Dx/Issue(s): PE, Anxiety, Bipolar Med management (antibiotics, diuretics, BP): IV Zosyn, Zofran, Phenergan x1 with desired results Skin/Wound Care: dry callous feet, no open wounds noted on this shift Vital Signs with Trends: Soft BP's all other VSS on RA Pain management (acute vs. chronic): PRN Percocet x1 with desired results; Diluadid Lab/Rad (abnormal, trends): 08/07: PT/INR elevated Neuro/Mental Status: A/O x4 Urinary Elimination Device: BR Urinary output greater than 30mL/hr? Yes Date of last BM: 08/07 Lines/Tubes: LFA infusing LR @ 75mls/hr Activity: Up with SBA Recommendations/questions for MD: Discharge Plan (needs, disposition, etc): TBD Initialized on 08/08/22 04:51 - END OF NOTE
[2022-08-08] MEDS: fentaNYL 100 MCG/2 ML VIAL IV PRN ×4 (09:02→09:25)
[2022-08-08] MEDS ORDERED: KETOROLAC 30 MG/ML VIAL IV SCH (15:20)
--- NOTE | 2022-08-10 11:31 | EKG ---
[facility] Test Date: 2022-08-08 Pat Name: Shahid Benitez Department: [facility] Room: 107 Gender: Female Jboss Developer: : 1975 Requested By: Domingo Rachel Order Number: [id number] Reading MD: Alan Napier Measurements Intervals [place] Rate: 55 P: 11 OR: 123 QRS: -14 QRSD: 89 T: 27 QT: 454 QTc: 435 Interpretive Statements Sinus rhythm Low voltage, precordial leads Baseline wander in lead(s) V2,V3 Electronically Signed On 08-10-2022 11:31:09 PST by Alan Napier /store/M0/[id number]/[id number].pdf
== END 2022-08-08 18:47 | disposition home or self-care (01) ==
LOC: MEDSUR 04:18 → ED 04:18 → MEDSUR 09:05
PROVIDERS: ADMIT Surgery; ATTEND Surgery

== ENCOUNTER 2022-08-10 10:26 | Observation (INO) ==
[2022-08-10] MEDS ORDERED: IODIXANOL 100 ML BOTTLE IV ONE (10:27)
[2022-08-10] MEDS ORDERED: 0.9 % SODIUM CHLORIDE 1,000 ML IV ONE (12:57)
[2022-08-10] MEDS ORDERED: ONDANSETRON 4 MG/2 ML VIAL IV ONE (12:57)
[2022-08-10] MEDS ORDERED: HYDROmorphone 0.5 MG/0.5 ML SYRINGE IV PRN (12:57)
--- NOTE | 2022-08-10 13:05 | Emergency Department Note ---
Abdominal Pain HPI General Chief Complaint: Abdominal Pain Stated Complaint: Body Aches Time Seen by Provider: 08/10/22 11:09 Source: patient Mode of arrival: ambulatory Limitations: no limitations History of Present Illness HPI Narrative: Narrative: The patient presents with continued right upper quadrant abdominal pain. She had a laparoscopic cholecystectomy performed at this facility 2 days ago. She says that she has such pain that she is unable to get up or bend over. Pain is diffuse but mainly in the right upper quadrant. She denies fever. She denies nausea or vomiting. She denies urinary problems. She has not had a bowel movement since the surgery but has passed "a little bit" of gas. Apart from movement and bending, no other modifying factors. Reportedly she is here at the request of her surgeon, Dr. Wellington. Related Data Home Medications Medication Instructions Recorded Confirmed trazodone 100 mg tablet 100 mg PO HS 02/08/18 08/07/22 rivaroxaban 10 mg tablet (Xarelto) 10 mg PO QDAY 03/01/22 08/07/22 ibuprofen 800 mg tablet 800 mg PO TID 04/16/22 08/07/22 methocarbamol 750 mg tablet 750 mg PO PRN PRN Muscle Pain 04/16/22 08/07/22 topiramate 100 mg tablet 100 mg PO HS 04/16/22 08/07/22 venlafaxine 75 mg tablet 75 mg PO ONCE 08/05/22 08/07/22 Previous Rx's Medication Instructions Recorded acetaminophen 650 mg 650 mg PO Q8H PRN pain #90 tabs 08/08/22 tablet,extended release (Tylenol 8 Hour) oxycodone 5 mg tablet 5 mg PO Q6H PRN pain #5 tabs 08/08/22 Allergies Allergy/AdvReac Type Severity Reaction Status Date / Time codeine Allergy Severe Swelling Verified 08/07/22 08:40 of Lip/Tongue/Throat Sulfa (Sulfonamide AdvReac Mild Vomiting Verified 08/10/22 10:43 Antibiotics) Review of Systems ROS ROS Narrative: Narrative: All systems ED: reviewed and negative except as stated. PFSH Narrative Patient History Narrative: Narrative: Medical/Surgical/Family History All Active Problems (Updated 08/10/22 @ 14:48 by Fausto Chicas MD) Acute postoperative abdominal pain (Acute) Ileus (Acute) Cholecystitis, acute (Acute) Cholelithiasis (Acute) Abdominal pain (Acute) Degeneration of intervertebral disc of lumbar region (Acute) Radiculopathy, lumbosacral region (Acute) Current use of anticoagulant therapy (Chronic) Chronic pain (Chronic) Depression (Chronic) Easy bruising (Chronic) Vasculitis (Chronic) Recurrent UTI (Chronic) Daily headache (Chronic) Pulmonary embolus (Chronic) Edema, lower extremity (Chronic) Other low back pain (Chronic) Migraine (Chronic) Anxiety disorder (Chronic) Bipolar disorder (Chronic) Recurrent major depression (Chronic) Obesity (Chronic) Lumbar radiculopathy (Chronic) Exposure to COVID-19 virus (Acute) Viral syndrome (Acute) Dental abscess (Acute) Dental caries (Acute) Musculoskeletal arm pain (Acute) Neck pain (Acute) Chest pain (Acute) Shortness of breath (Acute) Elevated d-dimer (Acute) History of pulmonary embolus (PE) (Acute) Family history of deep venous thrombosis (Acute) Medical History Anxiety disorder Bipolar disorder Chronic pain Current use of anticoagulant therapy Daily headache Dental abscess Dental caries Depression Easy bruising Edema, lower extremity Exposure to COVID-19 virus Lumbar radiculopathy Migraine Obesity Other low back pain Pulmonary embolus Recurrent major depression Recurrent UTI Vasculitis Viral syndrome Surgical History History of cervical discectomy (~2015) x2, metal placed History of tonsillectomy and adenoidectomy (01/06/83) History of tubal ligation (05/20/99) Family History Grandfather , at age 66 Heart disease Myocardial infarction Maternal Grandmother , at age 60 Cancer Disease of liver Maternal Dementia Paternal- at age 98 Uncle Cancer Schizophrenia, unspecified Paternal Son Mood disorder Mother Mood disorder Hypertension Aunt Blood coagulation disorder Paternal Other Diabetes mellitus Social History Smoking Status: Never smoker Alcohol Intake Frequency: holiday/special occasion only Substance Use: does not use Exam Narrative Narrative: Narrative: General Limitations: no limitations General appearance: Present alert and in no apparent distress Head Head: Present atraumatic and normal inspection Eye Eye: Present normal appearance ENT ENT: Present mucous membranes dry; Absent mucous membranes moist Neck Neck: Present normal inspection, full ROM and trachea midline Chest Chest: Present normal inspection and symmetric chest wall rise Respiratory Respiratory: Present normal lung sounds bilaterally; Absent respiratory distress Cardiovascular Cardiovascular: Present regular rate and normal rhythm Adbominal Abdominal: Present soft, tenderness (Mild tenderness just right of the umbilicus. Moderate tenderness with voluntary guarding in the right upper quadrant. No other areas of tenderness. Bowel sounds are not appreciated. Incisional sites appear clean, dry, and intact.), guarding and diminished bowel sounds; Absent distention Extremities Extremities: Present normal inspection and full ROM Back Back: Present full ROM; Absent CVA tenderness (R) or CVA tenderness (L) Neurological Neurological: Present alert and oriented X3 Psychiatric Psychiatric: Present normal affect and normal mood Skin Skin: Present warm (WNL) and dry Course Consultations Consultation #1: I spoke to the general surgeon, Dr. Wellington. He indicated that there was no acute pathology that needed to be addressed. He said he would be willing to admit for pain control if the patient and family so desired. Time: 14:35 Consultation #2: The patient indicated that she did not feel comfortable going home and would prefer to be admitted. I then respoke to Dr. Wellington who agreed to come in and admit the patient for intractable postop pain Time: 14:48 Vital Signs Vital signs: Vital Signs Temperature 97.4 F 08/10/22 10:39 Pulse Rate 78 08/10/22 10:39 Respiratory Rate 16 08/10/22 10:39 Blood Pressure 158/102 08/10/22 10:39 Pulse Oximetry (%) 98 08/10/22 10:39 Oxygen Delivery Method 08/10/22 10:39 Temperature 97.4 F 08/10/22 10:39 Pulse Rate 64 08/10/22 14:29 Respiratory Rate 16 08/10/22 12:41 Blood Pressure 144/91 08/10/22 14:29 Pulse Oximetry (%) 100 08/10/22 14:29 Oxygen Delivery Method 08/10/22 12:41 [facility] Narrative Medical decision making narrative: Narrative: The patient presents with abdominal pain post laparoscopic cholecystectomy. Plan to do a CT of the abdomen and obtain appropriate labs. We will medicate for pain and give an antiemetic to prevent nausea. She does appear slightly dry so we will give a liter of fluid as well. When the work-up is done, I will consult with her surgeon. Lab Data Lab results reviewed: Yes I reviewed the patient's lab results. Result diagrams: 08/10/22 13:09 08/10/22 13:09 Labs: Lab Results 08/10/22 08/10/22 Range/Units 13:09 13:09 WBC 9.7 (4.5-11.0) K/mcL RBC 4.83 (3.59-5.38) M/mcL Hgb 13.5 (11.2-15.7) g/dL Hct 43.3 (34.1-44.9) % MCV 89.6 (80.0-100.0) fL MCH 28.0 (26.0-34.0) pg MCHC 31.2 (31.0-36.0) g/dL RDW 12.9 (11.5-14.5) % Plt Count 357 (140-440) K/mcL MPV 10.3 (8.8-12.5) fL Immature Gran % (Auto) 0.2 (0.0-0.5) % Neut % (Auto) 46.8 (38.0-78.0) % Lymph % (Auto) 42.1 (15.5-49.0) % Bath % (Auto) 7.5 (1.0-12.0) % Eos % (Auto) 2.3 (0.0-7.0) % Baso % (Auto) 1.1 (0.0-2.0) % Lymph # (Auto) 4.08 (1.50-4.80) K/mcL Bath # (Auto) 0.73 (0.10-0.90) K/mcL Eos # (Auto) 0.22 (0.00-0.70) K/mcL Baso # (Auto) 0.11 (0.00-0.30) K/mcL Immature Gran # 0.02 (0.00-0.05) K/mcl Absolute Neutrophils 4.52 (1.80-8.00) K/mcL Sodium 137 (133-145) mmol/L Potassium 3.7 (3.3-5.1) mmol/L Chloride 103 (96-108) mmol/L Carbon Dioxide 27 (22-30) mmol/L Anion Gap 7.0 L (8.0-16.0) BUN 11 (6-20) mg/dL Creatinine 0.9 (0.6-1.1) mg/dL GFR Calculation 75 Glucose 88 (70-105) mg/dL Calcium 9.4 (8.6-10.4) mg/dL Total Bilirubin 0.4 (0.1-1.0) mg/dL AST 29 (<32) U/L ALT 33 (<40) U/L Alkaline Phosphatase 69 (39-117) U/L Total Protein 7.2 (5.9-8.4) gm/dL Albumin 3.8 (3.2-5.2) gm/dL Globulin 3.4 (2.2-3.7) gm/dL Albumin/Globulin Ratio 1.1 (1.0-2.3) Lipase 39 (7-60) U/L ED POC Tests ED POC Tests: HCG POC Results Negative Radiology Data Radiology results reviewed: Yes I reviewed the patient's radiology results. Discharge Plan Patient/Caregiver Discharge Instructions Pt seen by WHEEL FILLER/PA only: No Clinical Impression: Acute postoperative abdominal pain, Ileus Patient Disposition: Xfer As Inpt ([facility]) Follow up with: Charlee Bundy PA-C [Primary Care Provider] - Prescriptions: No Action topiramate 100 mg tablet 100 mg PO HS methocarbamol 750 mg tablet 750 mg PO PRN PRN (Reason: Muscle Pain) ibuprofen 800 mg tablet 800 mg PO TID Xarelto 10 mg tablet 10 mg PO QDAY venlafaxine 75 mg tablet 75 mg PO ONCE trazodone 100 MG tablet 100 mg PO HS acetaminophen [Tylenol 8 Hour] 650 mg tablet extended release 650 mg PO Q8H PRN (Reason: pain) Qty: 90 0RF oxycodone 5 mg tablet 5 mg PO Q6H PRN (Reason: pain) Qty: 5 0RF
[2022-08-10 14:16] LABS: ALT/SGPT 33 U/L (<40); AST/SGOT 29 U/L (<32); Albumin 3.8 gm/dL (3.2-5.2); Albumin/Globulin Ratio 1.1 (1.0-2.3); Alkaline Phosphatase 69 U/L (39-117); Bilirubin,Total 0.4 mg/dL (0.1-1.0); Blood Urea Nitrogen 11 mg/dL (6-20); Calcium 9.4 mg/dL (8.6-10.4); Carbon Dioxide 27 mmol/L (22-30); Chloride 103 mmol/L (96-108); Globulin 3.4 gm/dL (2.2-3.7); Glomerular Filtration Rate 75; Glucose 88 mg/dL (70-105)
[2022-08-10 14:25] LABS: Basophils # (Auto) 0.11 K/mcL (0.00-0.30); Basophils % (Auto) 1.1 % (0.0-2.0); Eosinophils # (Auto) 0.22 K/mcL (0.00-0.70); Eosinophils % (Auto) 2.3 % (0.0-7.0); Hematocrit 43.3 % (34.1-44.9); Hemoglobin 13.5 g/dL (11.2-15.7); Lymphocytes # (Auto) 4.08 K/mcL (1.50-4.80); Lymphocytes % (Auto) 42.1 % (15.5-49.0); Mean Cell Volume 89.6 fL (80.0-100.0); Mean Corpuscular HGB Conc 31.2 g/dL (31.0-36.0); Mean Platelet Volume 10.3 fL (8.8-12.5); Monocytes # (Auto) 0.73 K/mcL (0.10-0.90); Monocytes % (Auto) 7.5 % (1.0-12.0); Neutrophils % (Auto) 46.8 % (38.0-78.0); Platelet Count 357 K/mcL (140-440); RBC 4.83 M/mcL (3.59-5.38); Red Cell Distribution Width 12.9 % (11.5-14.5); WBC 9.7 K/mcL (4.5-11.0)
--- NOTE | 2022-08-10 14:26 | Cat Scan Report ---
INDICATION: ruq pain s/p clarice 2 days ago COMPARISON: Previous CT scans dated 08/07/2022, 05/23/2006 TECHNIQUE: Axial images were obtained through the abdomen and pelvis. Sagittally and coronally reformatted images. 80 mL Isovue 370 injected intravenously. Oral contrast material was not administered FINDINGS: Lung bases:Lung bases are abnormal. There are linear densities at both lung bases most consistent with atelectasis. Pneumonia is possible. Liver:Negative. No focal intrahepatic mass. No focal abnormality. Liver contour is smooth. No evidence for cirrhosis Gallbladder, bilary:Patient underwent cholecystectomy 2 days ago. There is a small round low density finding in the gallbladder fossa suggesting a small residual portion of the gallbladder. Correlation with surgical notes is recommended. There is no gas. No free fluid. There is no bile duct dilatation. There is fluid within the pelvis. KACEY values are approximately 17. This is nonspecific. Findings are not considered typical of bile leak as there is no free fluid in the right upper quadrant. This may be postsurgical fluid. Appearance is not consistent with acute hemorrhage No intra-abdominal abscess. There is no pneumoperitoneum. Spleen:No splenomegaly. Normal enhancement of splenic and portal veins. Pancreas:No pancreatic mass. No peripancreatic abnormality Adrenal glands:Negative Kidneys,ureters,bladder:There is deformity of the left kidney. This is stable since 2005. No hydronephrosis. No solid or cystic mass. No calculi. No hydroureter. No ureteral calculus. No bladder stone. No detectable bladder mass. Gastrointestinal:No detectable colonic mass. There is no diverticulitis. Small bowel is mildly prominent than contains fluid. Mild ileus is possible. Negative stomach and duodenum. No focal abnormality. Appendix: The appendix is negative Vascular:Negative abdominal aorta. Superior mesenteric artery and celiac trunk are normal. Normal opacification of the inferior mesenteric artery Lymphatic:No retroperitoneal or mesenteric adenopathy Mesentery, peritoneum: As described above there is a small amount of free fluid within the pelvic cul-de-sac. This is a nonspecific finding. There is no free fluid in the right upper bladder. There is no pneumoperitoneum. No intra-abdominal abscess Reproductive:Uterus is neutral flexed. No adnexal mass Musculoskeletal:No lumbar compression fractures. Sacrum and pelvis are negative. No hip fracture. Small amount of gas in the subcutaneous soft tissues at the umbilicus. This is consistent with previous laparoscopic surgery IMPRESSION: 1. Cholecystectomy performed 2 days ago. There may be a small residual gallbladder in the gallbladder fossa. No dilated bile ducts 2. Small amount of free fluid within the pelvis. There is no free fluid in the right upper quadrant as would be typical with a bile leak 3. No pneumoperitoneum 4. Linear densities of both lung bases most consistent with atelectasis 5. Mildly prominent small bowel may represent ileus The exam was performed using radiation dose optimization techniques including, but not limited to, automated exposure control, adjustment of the mA and/or kV according to patient size and use of iterative reconstruction technique. Interpreted and Authenticated by: Chico Augusitne 08/10/22
[2022-08-10] MEDS ORDERED: ACETAMINOPHEN 325 MG TABLET PO PRN (16:06)
--- NOTE | 2022-08-10 16:14 | General Surg History&Physical ---
HPI History of Present Illness Patient information: Note initiated : 08/10/22 at 4:11 pm Service Date, if different from initiated Date: [] Patient: Shahid Benitez a 46 y/o F admitted on for Body Aches. Chief Complaint: [] Chief complaint: Abdominal pain History of present illness: Ms. Benitez is a 46 year old F postop day #2 status post robotic assisted cholecystectomy for severe acute on chronic cholecystitis. Patient reports he went home, has not been as ambulatory as she should be, has increased amount of abdominal pain and pain is not being controlled with her oral medication. Her pharmacy did not fill all of her medications and she is unsure which one was not given to her. She denies any fevers chills nausea or vomiting at this time. She reports she has not had a bowel movement since surgery. She came into the emergency room for further evaluation. Review of Systems Review of systems: All systems negative other than above PFSH PFSH All Active Problems Acute postoperative abdominal pain (Acute) Ileus (Acute) Cholecystitis, acute (Acute) Cholelithiasis (Acute) Abdominal pain (Acute) Degeneration of intervertebral disc of lumbar region (Acute) Radiculopathy, lumbosacral region (Acute) Current use of anticoagulant therapy (Chronic) Chronic pain (Chronic) Depression (Chronic) Easy bruising (Chronic) Vasculitis (Chronic) Recurrent UTI (Chronic) Daily headache (Chronic) Pulmonary embolus (Chronic) Edema, lower extremity (Chronic) Other low back pain (Chronic) Migraine (Chronic) Anxiety disorder (Chronic) Bipolar disorder (Chronic) Recurrent major depression (Chronic) Obesity (Chronic) Lumbar radiculopathy (Chronic) Exposure to COVID-19 virus (Acute) Viral syndrome (Acute) Dental abscess (Acute) Dental caries (Acute) Musculoskeletal arm pain (Acute) Neck pain (Acute) Chest pain (Acute) Shortness of breath (Acute) Elevated d-dimer (Acute) History of pulmonary embolus (PE) (Acute) Family history of deep venous thrombosis (Acute) Medical History Anxiety disorder Bipolar disorder Chronic pain Current use of anticoagulant therapy Daily headache Dental abscess Dental caries Depression Easy bruising Edema, lower extremity Exposure to COVID-19 virus Lumbar radiculopathy Migraine Obesity Other low back pain Pulmonary embolus Recurrent major depression Recurrent UTI Vasculitis Viral syndrome Surgical History History of cervical discectomy (~2015) x2, metal placed History of tonsillectomy and adenoidectomy (01/06/83) History of tubal ligation (05/20/99) Family History Grandfather , at age 66 Heart disease Myocardial infarction Maternal Grandmother , at age 60 Cancer Disease of liver Maternal Dementia Paternal- at age 98 Uncle Cancer Schizophrenia, unspecified Paternal Son Mood disorder Mother Mood disorder Hypertension Aunt Blood coagulation disorder Paternal Other Diabetes mellitus Social History marital status: education level: college occupational status: employed occupation: [employer] smoking status: Never smoker alcohol intake frequency: holiday/special occasion only substance use type: does not use seatbelt use: always MEDS/ALLERGIES Home Medications and Allergies Home Medications Medication Instructions Recorded Confirmed Type trazodone 100 mg tablet 100 mg PO HS 02/08/18 08/07/22 History rivaroxaban 10 mg tablet (Xarelto) 10 mg PO QDAY 03/01/22 08/07/22 History ibuprofen 800 mg tablet 800 mg PO TID 04/16/22 08/07/22 History methocarbamol 750 mg tablet 750 mg PO PRN PRN Muscle Pain 04/16/22 08/07/22 History topiramate 100 mg tablet 100 mg PO HS 04/16/22 08/07/22 History oxycodone 5 mg tablet 5 mg PO Q6H PRN pain #5 tabs 08/08/22 Rx acetaminophen 650 mg 650 mg PO Q8HP PRN pain 08/10/22 History tablet,extended release (Tylenol 8 Hour) venlafaxine 75 mg capsule,extended 75 mg PO QDAY 08/10/22 History release 24 hr Allergies Allergy/AdvReac Type Severity Reaction Status Date / Time codeine Allergy Severe Swelling Verified 08/07/22 08:40 of Lip/Tongue/Throat Sulfa (Sulfonamide AdvReac Mild Vomiting Verified 08/10/22 10:43 Antibiotics) Physical Examination Vital Signs Vital signs: Temp Pulse Resp BP Pulse Ox O2 Del Method 97.4 F 56 L 16 146/94 100 08/10/22 10:39 08/10/22 15:12 08/10/22 12:41 08/10/22 15:01 08/10/22 15:12 08/10/22 12:41 General physical appearance General physical exam: well developed, well nourished and no distress Eyes Eye exam: PERRL and normal ocular movement ENT ENT exam: normal pinna, normal nares, normal mucosa, no hearing loss and no congestion Head Head exam IM: Present atraumatic and normocephalic Neck Neck exam: no masses, no bruits, trachea midline, no lymphadenopathy and no venous distension Cardiovascular Cardiovascular exam IM: Present normal rate and rhythm Respiratory Respiratory exam: normal expansion, normal respiratory effort, clear to percussion and clear to auscultation Abdomen Abdomen: Present soft, non tender, bowel sounds and surgical scars (Clean dry and intact without evidence of infection); Absent masses, guarding, rigid, rebound or distended Hernia: Present none Genitourinary Genitourinary (Female): Present normal external genitalia Rectum Rectum: Present normal sphincter tone, no hemorrhoids, no tenderness, no masses and no bleeding Integumentary Integumentary: Present no rash, no growths and no abnormal pigmentation Neurologic Neurologic: Present normal coordination and normal sensation Musculoskeletal Musculoskeletal: Present normal gait and normal posture Psychiatric Psychiatric: Present oriented to time, oriented to person, oriented to place, speech is normal and memory intact Results Labs Result diagrams: 08/10/22 13:09 08/10/22 13:09 Labs: Abnormal lab results 08/10/22 Range/Units 13:09 Anion Gap 7.0 L (8.0-16.0) Diabetes panel 08/10/22 Range/Units 13:09 Sodium 137 (133-145) mmol/L Potassium 3.7 (3.3-5.1) mmol/L Chloride 103 (96-108) mmol/L Carbon Dioxide 27 (22-30) mmol/L BUN 11 (6-20) mg/dL Creatinine 0.9 (0.6-1.1) mg/dL Glucose 88 (70-105) mg/dL Calcium 9.4 (8.6-10.4) mg/dL AST 29 (<32) U/L ALT 33 (<40) U/L Alkaline Phosphatase 69 (39-117) U/L Total Protein 7.2 (5.9-8.4) gm/dL Albumin 3.8 (3.2-5.2) gm/dL Calcium panel 08/10/22 Range/Units 13:09 Calcium 9.4 (8.6-10.4) mg/dL Albumin 3.8 (3.2-5.2) gm/dL Pituitary panel 08/10/22 Range/Units 13:09 Sodium 137 (133-145) mmol/L Potassium 3.7 (3.3-5.1) mmol/L Chloride 103 (96-108) mmol/L Carbon Dioxide 27 (22-30) mmol/L BUN 11 (6-20) mg/dL Creatinine 0.9 (0.6-1.1) mg/dL Glucose 88 (70-105) mg/dL Calcium 9.4 (8.6-10.4) mg/dL Adrenal panel 08/10/22 Range/Units 13:09 Sodium 137 (133-145) mmol/L Potassium 3.7 (3.3-5.1) mmol/L Chloride 103 (96-108) mmol/L Carbon Dioxide 27 (22-30) mmol/L BUN 11 (6-20) mg/dL Creatinine 0.9 (0.6-1.1) mg/dL Glucose 88 (70-105) mg/dL Calcium 9.4 (8.6-10.4) mg/dL Total Bilirubin 0.4 (0.1-1.0) mg/dL AST 29 (<32) U/L ALT 33 (<40) U/L Alkaline Phosphatase 69 (39-117) U/L Total Protein 7.2 (5.9-8.4) gm/dL Albumin 3.8 (3.2-5.2) gm/dL All other labs normal. Imaging CT scan - abdomen: image reviewed A/P Assessment and plan (1) Acute postoperative abdominal pain: Plan: Postoperative day #2 status post robotic assisted cholecystectomy with increased abdominal pain. Work-up completely normal for postop day #2, no sign of bile leak, infection, bowel obstruction, perforation. Plan: Admit for IV pain medication. Ambulate minimum 4 times a day, 2 times per shift. Anticipate discharge in 1 to 2 days. Status: Acute Time Spent With Patient Time: Total time spent is greater than 50% in coordination of care (as documented) at patient's floor/unit and/or counseling patient:
[2022-08-10] MEDS: HYDROmorphone 0.5 MG/0.5 ML SYRINGE IV PRN ×3 (16:49→22:32)
[2022-08-10] MEDS: oxyCODONE HCL 5 MG TABLET PO PRN ×2 (18:53→22:31)
[2022-08-10] MEDS: MAGNESIUM HYDROXIDE 30 ML ORAL.SUSP PO SCH ×2 (18:53→23:53)
[2022-08-10] MEDS: KETOROLAC 30 MG/ML VIAL IV SCH (20:12)
[2022-08-10] MEDS: SENNOSIDES 1 TABLET PO SCH (20:15)
[2022-08-10] MEDS: DOCUSATE SODIUM 100 MG CAPSULE PO SCH (20:16)
[2022-08-10] MEDS: 0.9 % SODIUM CHLORIDE 10 ML SYRINGE IV SCH (20:19)
[2022-08-10] MEDS: ONDANSETRON 4 MG/2 ML VIAL IV PRN (23:44)
[2022-08-11] MEDS: HYDROmorphone 0.5 MG/0.5 ML SYRINGE IV PRN ×7 (02:57→23:51)
[2022-08-11] MEDS: oxyCODONE HCL 5 MG TABLET PO PRN ×5 (02:57→23:51)
[2022-08-11] MEDS: KETOROLAC 30 MG/ML VIAL IV SCH ×3 (04:17→21:14)
[2022-08-11] MEDS: MAGNESIUM HYDROXIDE 30 ML ORAL.SUSP PO SCH ×4 (05:34→23:51)
[2022-08-11] MEDS: 0.9 % SODIUM CHLORIDE 10 ML SYRINGE IV SCH ×3 (05:34→21:06)
[2022-08-11] MEDS: DOCUSATE SODIUM 100 MG CAPSULE PO SCH ×2 (07:47→20:58)
[2022-08-11] MEDS: ONDANSETRON 4 MG/2 ML VIAL IV PRN (18:52)
--- NOTE | 2022-08-11 19:45 | General Surgery Progress Note ---
SUBJECTIVE Subjective Patient information: Note initiated : 08/11/22 at 7:43 pm Service Date, if different from initiated Date: [] Patient: Shahid Benitez 46 y/o F admitted on 08/10/22 for Body Aches. Chief Complaint: [] Principal diagnosis: s/p douglas clarice Interval history: cont with pain, no fever, chills, nausea, emisis. minimaly ambulatory Constitutional Vitals: Vital Signs Temp Pulse Resp BP Pulse Ox O2 Del Method 98.1 F 74 18 129/81 91 08/11/22 18:58 08/11/22 18:58 08/11/22 18:58 08/11/22 18:58 08/11/22 18:58 08/11/22 18:58 Period Temp Pulse Resp BP Sys/Renner Pulse Ox O2 Del Method O2 Flow Rate Last 24 Hr 97.7 F-98.6 F 69-85 16-18 96-130/64-85 91-100 Room Air-Room Air Intake and Output 08/11/22 08/11/22 08/11/22 03:59 11:59 19:59 Intake Total 976 Output Total 400 250 300 Balance 576 -250 -300 Weight 269 lb 275 lb Patient Weight 08/12/22 03:59 Weight 275 lb Intake & Output: Intake & Output 08/11/22 08/11/22 08/11/22 03:59 11:59 19:59 Intake Total 976 Output Total 400 250 300 Balance 576 -250 -300 Weight 269 lb 275 lb Intake: Oral 976 Output: Void Amount 400 250 300 Other: Meal Dinner Percent of Meal Consumed 50% Feeding Ability Independent Urine Appearance Clear Clear Urine Color Dark Yellow Yellow Stool Color Brown Stool Consistency Liquid Watery # Unmeasured Emesis 1 # Bowel Movements 1 General appearance: cooperative and no acute distress GI/Abdominal GI/Abdominal exam: Present soft; Absent distended, mass, rebound or rigid Additional comments: inc clean dry, intact A/P Assessment and plan (1) Cholecystitis, acute: Plan: post op pain, no evidence of complication cont with pain medication Status: Acute Time Spent With Patient Time: Total time spent is greater than 50% in coordination of care (as documented) at patient's floor/unit and/or counseling patient:
[2022-08-11] MEDS: SENNOSIDES 1 TABLET PO SCH (20:58)
[2022-08-12] MEDS: HYDROmorphone 0.5 MG/0.5 ML SYRINGE IV PRN ×2 (02:29→06:10)
[2022-08-12] MEDS: oxyCODONE HCL 5 MG TABLET PO PRN ×2 (04:57→09:40)
[2022-08-12] MEDS: MAGNESIUM HYDROXIDE 30 ML ORAL.SUSP PO SCH (05:32)
[2022-08-12] MEDS: 0.9 % SODIUM CHLORIDE 10 ML SYRINGE IV SCH (06:06)
--- NOTE | 2022-08-12 07:52 | Discharge Summary ---
Discharge Provider Provider IMPORTANT FOLLOW-UP INFORMATION FOR PCP: Patient information: Note initiated : 08/12/22 at 7:51 am Service Date, if different from initiated Date: [] Patient: Shahid Benitez 46 y/o F admitted on 08/10/22 for Body Aches. Chief Complaint: [] Date of admission: 08/10/22 17:07 Discharge date: 08/12/22 Primary care physician: Charlee Bundy PA-C Consults: 08/11/22 07:00 Consult to Physician [CONS] Routine Comment: Consulting Provider: Peña Wellington Reason For Exam: Physician to Consult COURSE Hospital Course Hospital course: Patient admitted with post cholecystectomy pain, work-up negative for complications. Patient's pain is better controlled today, she is ambulatory and tolerating regular diet Discharge diagnosis: Status postcholecystectomy Time Spent with Patient Time attestation: Total time spent providing and/or coordinating discharge services: Time spent: Less than 30 minutes Physical Examination Vital Signs Vital signs: Temp Pulse Resp BP Pulse Ox O2 Del Method 97.3 F 81 14 132/79 100 08/12/22 07:21 08/12/22 07:21 08/12/22 07:21 08/12/22 07:21 08/12/22 07:21 08/12/22 07:21 Discharge Plan Patient/Caregiver Discharge Instructions Activity: increase activity as tolerated Diet: Regular Diet Activity Restrictions/Additional Instructions: Resume normal activity as tolerated, no lifting greater than 10 pounds, no bending, may return to work. May resume showering starting tonight. Follow-up with me in 2 to 3 weeks. Prescriptions: New oxycodone 5 mg Tablet 5 mg PO Q4HP PRN (Reason: Per Pain Protocol) Qty: 10 0RF Continued topiramate 100 mg tablet 100 mg PO HS methocarbamol 750 mg tablet 750 mg PO PRN PRN (Reason: Muscle Pain) ibuprofen 800 mg tablet 800 mg PO TID Xarelto 10 mg tablet 10 mg PO QDAY trazodone 100 MG tablet 100 mg PO HS oxycodone 5 mg tablet 5 mg PO Q6H PRN (Reason: pain) Qty: 5 0RF venlafaxine 75 mg capsule,extended release 24hr 75 mg PO QDAY Follow Up Plan Follow up with: Charlee Bundy PA-C [Primary Care Provider] - Peña Wellington MD [Physician] - Patient Disposition: Home, Self-Care Discharge Orders: Discharge Order (Routine); Ordered 08/12/22 Ordered By: Peña Wellington Pending Pending Pending: Resuscitation Status Resuscitate (Full Code) Diet Regular Diet Start Sat Aug 10 160 Acetaminophen (Acetaminophen 325 Mg Tablet) 650 mg PO Q6HP PRN; Protocol PRN Reason: Per Pain Protocol/Fever > 101 Last Admin: 08/10/22 23:45 Dose: 650 mg Documented By: WINIFRED Docusate Sodium (Docusate Sodium 100 Mg Capsule) 100 mg PO BID AYLIN Last Admin: 08/11/22 20:58 Dose: 100 mg Documented By: Admin: 08/11/22 07:47 Dose: 100 mg Documented By: Admin: 08/10/22 20:16 Dose: 100 mg Documented By: WINIFRED Hydromorphone HCl (Hydromorphone 0.5 Mg/0.5 Ml Syringe) 0.5 mg IV Q2HP PRN; Protocol PRN Reason: Per Pain Protocol Last Admin: 08/12/22 06:10 Dose: 0.5 mg Documented By: Admin: 08/12/22 02:29 Dose: 0.5 mg Documented By: Admin: 08/11/22 23:51 Dose: 0.5 mg Documented By: Admin: 08/11/22 18:52 Dose: 0.5 mg Documented By: Admin: 08/11/22 16:08 Dose: 0.5 mg Documented By: Admin: 08/11/22 11:23 Dose: 0.5 mg Documented By: Admin: 08/11/22 07:51 Dose: 0.5 mg Documented By: Admin: 08/11/22 05:36 Dose: 0.5 mg Documented By: Admin: 08/11/22 02:57 Dose: 0.5 mg Documented By: Admin: 08/10/22 22:32 Dose: 0.5 mg Documented By: Admin: 08/10/22 18:53 Dose: 0.5 mg Documented By: Admin: 08/10/22 16:49 Dose: 0.5 mg Documented By: MATTHIAS Ketorolac Tromethamine (Ketorolac 30 Mg/Ml Vial) 30 mg IV Q6HP [facility]; Protocol Stop: 08/12/22 16:09 Last Admin: 08/11/22 21:14 Dose: 30 mg Documented By: Admin: 08/11/22 12:59 Dose: 30 mg Documented By: Admin: 08/11/22 04:17 Dose: 30 mg Documented By: Admin: 08/10/22 20:12 Dose: 30 mg Documented By: WINIFRED Magnesium Hydroxide (Magnesium Hydroxide 30 Ml Oral.Susp) 30 ml PO Q6 AYLIN Last Admin: 08/12/22 05:32 Dose: 30 ml Documented By: Admin: 08/11/22 23:51 Dose: 30 ml Documented By: Admin: 08/11/22 18:16 Dose: 30 ml Documented By: Admin: 08/11/22 13:05 Dose: 30 ml Documented By: Admin: 08/11/22 05:34 Dose: 30 ml Documented By: Admin: 08/10/22 23:53 Dose: 30 ml Documented By: Admin: 08/10/22 18:53 Dose: 30 ml Documented By: WINIFRED Ondansetron HCl (Ondansetron 4 Mg/2 Ml Vial) 4 mg IV Q6HP PRN PRN Reason: Nausea And Vomiting Last Admin: 08/11/22 18:52 Dose: 4 mg Documented By: Admin: 08/10/22 23:44 Dose: 4 mg Documented By: WINIFRED Oxycodone HCl (Oxycodone Hcl 5 Mg Tablet) 5 mg PO Q4HP PRN; Protocol PRN Reason: Per Pain Protocol Last Admin: 08/12/22 04:57 Dose: 5 mg Documented By: Admin: 08/11/22 23:51 Dose: 5 mg Documented By: Admin: 08/11/22 18:16 Dose: 5 mg Documented By: Admin: 08/11/22 12:59 Dose: 5 mg Documented By: Admin: 08/11/22 07:14 Dose: 5 mg Documented By: Admin: 08/11/22 02:57 Dose: 5 mg Documented By: Admin: 08/10/22 22:31 Dose: 5 mg Documented By: Admin: 08/10/22 18:53 Dose: 5 mg Documented By: WINIFRED Senna (Sennosides 1 Tablet) 2 tab PO HS [facility] Last Admin: 08/11/22 20:58 Dose: 2 tab Documented By: Admin: 08/10/22 20:15 Dose: 2 tab Documented By: WINIFRED Sodium Chloride (0.9 % Sodium Chloride 10 Ml Syringe) 10 ml IV Q8 [facility] Last Admin: 08/12/22 06:06 Dose: 10 ml Documented By: Admin: 08/11/22 21:06 Dose: 10 ml Documented By: Admin: 08/11/22 13:06 Dose: 10 ml Documented By: Admin: 08/11/22 05:34 Dose: 10 ml Documented By: Admin: 08/10/22 20:19 Dose: 10 ml Documented By: WINIFRED Shift Summary 08/12/22 04:06 Shift Summary by Wandy Early Primary Diagnosis: Pain control Post lap Josefina Registration Status: Obs Date of Surgery (if applicable): 08/08 Lap Josefina Pertinent Medical Dx/Issue(s): PE, anxiety, Depression IMPRESSION: 1. Cholecystectomy performed 2 days ago. There may be a small residual gallbladder in the gallbladder fossa. No dilated bile ducts 2. Small amount of free fluid within the pelvis. There is no free fluid in the right upper quadrant as would be typical with a bile leak 3. No pneumoperitoneum 4. Linear densities of both lung bases most consistent with atelectasis 5. Mildly prominent small bowel may represent ileus Med management (antibiotics, diuretics, BP): Skin/Wound Care: X4 lap sites Vital Signs with Trends: VSS O2, liter flow/saturations: RA Pain management (acute vs. chronic): PRN Dilaudid, oxycodone, Toradol, zofran Lab/Rad (abnormals, trends): Neuro/Mental Status: A/O x4- soft spoken and a little apprehensive/anxious d/t pain Urinary Elimination Device: Ambulated to BR Urinary output greater than 30mL/hr? 200 mL and a few unmeasured with BMs Date of last BM: x3 this shift Lines/Tubes: IV R hand, SL, positional Activity: Ambulates to BR and in hallway 2x this shift so far Recommendations/questions for MD: Discharge Plan (needs, disposition, etc): Home Initialized on 08/12/22 04:06 - END OF NOTE
[2022-08-12] MEDS: DOCUSATE SODIUM 100 MG CAPSULE PO SCH (08:42)
== END 2022-08-12 10:20 | disposition home or self-care (01) ==
LOC: ED 10:26 → MEDSUR 10:26
PROVIDERS: ADMIT Surgery; ATTEND Surgery